=== PATIENT | male | born 1980 | race Caucasian/White ===

== ENCOUNTER 2017-01-23 18:07 | Emergency (ER) | payer SELFPAY | END 2017-01-23 21:45 | disposition left against medical advice (07) | LOC: ER 20:49 | DX: M79.89 Other specified soft tissue disorders (principal); Z53.21 Procedure and treatment not carried out due to patient leaving prior to being seen by health care provider ==

== ENCOUNTER 2017-08-14 16:11 | Emergency (ER) | payer MEDICAID ==
[~2017-08-14] VITALS: Ht 180.3 cm; Wt 155.0 kg
[2017-08-15] MEDS ORDERED: ONDANSETRON HCL 4MG/2ML VIAL IV STA (00:45)
[2017-08-15] MEDS ORDERED: SODIUM CHLORIDE 0.9% 1,000 ML IV ONE (00:45)
[2017-08-15] MEDS ORDERED: FAMOTIDINE 20MG/2ML VIAL IV STA (00:45)
[2017-08-15] MEDS ORDERED: MORPHINE SULFATE 4 MG/ML CPJ (NOT FOR IM USE) IV STA (00:45)
[2017-08-15 01:28] LABS: BASOPHILS % 0.8 % (0.0-2.0); EOSINOPHILS % 3.5 % (0.0-5.0); HEMATOCRIT. 36.7 % (42.0-52.0); HEMOGLOBIN. 11.7 g/dL (14.0-18.0); LYMPHOCYTES % 20.9 % (20.0-50.0); MEAN CORPUSCULAR HEMOGLOBIN 24.3 pg (28.0-32.0); MEAN CORPUSCULAR VOLUME 76.6 fL (80.0-94.0); MEAN PLATELET VOLUME 8.5 fl (7.4-10.4); MONOCYTES % 5.5 % (2.0-8.0); NEUTROPHILS % 69.3 % (40.0-76.0); PLATELET 228 x1000/uL (130-400); RED CELL DISTRIBUTION WIDTH 17.6 % (11.6-14.6)
[2017-08-15 01:33] LABS: CHLORIDE 104 mEq/L (98-107)
[2017-08-15 01:41] LABS: CARBON DIOXIDE 28 mEq/L (21-32); ETHANOL BLOOD < 10 mg/dL
[2017-08-15] MEDS ORDERED: LABETALOL 5MG/ML SYR 20 MG/4 ML SYRINGE IV NR (03:15)
[2017-08-15 04:20] VITALS: BP 157/90
== END 2017-08-15 04:25 | disposition home or self-care (01) ==
LOC: ER 16:38
DX: K42.9 Umbilical hernia without obstruction or gangrene (principal); R11.2 Nausea with vomiting, unspecified; R19.7 Diarrhea, unspecified; I16.0 Hypertensive urgency; F17.200 Nicotine dependence, unspecified, uncomplicated
CPT/HCPCS: 36415; 71010; 74176; 80053; 83605; 83690; 85025; 93005; 96361; 96374; 96375; 99291; G0482; J2270; J2405; J3490; J7030; Z7610

== ENCOUNTER 2019-09-10 17:04 | Emergency (ER) | payer MEDICAID ==
[~2019-09-10] VITALS: Ht 177.8 cm; Wt 123.0 kg
[2019-09-10 17:33] VITALS: BP 138/78
== END 2019-09-10 19:02 | disposition home or self-care (01) ==
LOC: ER 17:04
DX: T81.49XA Infection following a procedure, other surgical site, initial encounter (principal); N48.29 Other inflammatory disorders of penis; I10 Essential (primary) hypertension; Z98.890 Other specified postprocedural states
CPT/HCPCS: 87070; 87077; 87186; 99283